=== PATIENT | male | born 1995 | race African-American/Black ===

== ENCOUNTER 2023-03-25 02:15 | Emergency (ER) | payer SELFPAY ==
[~2023-03-25] VITALS: Ht 190.5 cm; Wt 79.4 kg
[2023-03-25 02:17] VITALS: BP 129/86
--- NOTE | 2023-03-25 02:19 | NUR ---
Off load patient and patient taken to lobby.
[2023-03-25 02:23] VITALS: BP 129/86
--- NOTE | 2023-03-25 03:40 | NUR ---
PATIENT LEFT WITHOUT BEING SEEN BY DR. Love. NO FURTHER CARE PROVIDED FOR PATIENT.
--- NOTE | 2023-03-25 03:40 | NUR ---
Patient walked out ER.
== END 2023-03-25 03:40 | disposition left against medical advice (07) ==
LOC: MED 02:15
DX: Z53.21 Procedure and treatment not carried out due to patient leaving prior to being seen by health care provider (principal)
CPT/HCPCS: 99281